=== PATIENT | male | born 1970 | race Caucasian/White ===

== ENCOUNTER 2018-11-27 18:31 | Observation (INO) | payer SELFPAY ==
[2018-11-27 18:32] VITALS: BP 124/82; PULSE 98; RESP 18; TEMP 36.6; O2SAT 98; BMI 24.7
--- NOTE | 2018-11-27 18:46 | EKG12_ITS ---
Test Reason : CP Blood Pressure : / mmHG Vent. Rate : 143 BPM Atrial Rate : 156 BPM P-R Int : 000 ms QRS Dur : 080 ms QT Int : 256 ms P-R-T Axes : 000 074 054 degrees QTc Int : 395 ms Atrial fibrillation with rapid ventricular response Abnormal ECG Confirmed by ROLY CASANOVA, ADAM ([id number]), food expeditor GISELA LEE ([id number] on 12/02/2018 10:10:32 AM Referred By: David Gil Confirmed By:ADAM DUNHAM MD
[2018-11-27] MEDS: dilTIAZem 25 MG/5 ML Vial 20 MG IV BOLUS (18:50)
--- NOTE | 2018-11-27 18:50 | RAD_ITS ---
HISTORY: CHEST PAIN EXAM: XR Chest 1 View: COMPARISON: None FINDINGS: # of images incl. paperwork: 2 LINES/DEVICES: None. LUNGS: Radiographically clear. No consolidation, edema or effusion. No pneumothorax. MEDIASTINUM AND CARDIOVASCULAR STRUCTURES: Cardiac silhouette not enlarged. Central airways and mediastinal contour are unremarkable. BONES AND SOFT TISSUES: Unremarkable. RAD/Chest 1 View (Portable) IMPRESSION: No radiographic evidence of acute cardiopulmonary disease. at 1917 Reported and signed by: Dhiraj Cooper MD Electronically Signed: Dhiraj Cooper, at 19:16 EST Tel , Service support ,
[2018-11-27] MEDS: 0.9% Normal Saline 1,000 ML 1000 ML IV (18:53)
[2018-11-27] MEDS: Aspirin 81 MG TAB.CHEW 324 MG PO (18:55)
[2018-11-27 18:56] VITALS: BP 116/87; PULSE 111; PULSE 112; RESP 14; RESP 17; TEMP 36.6; O2SAT 96; O2SAT 97; O2SAT 98
[2018-11-27 19:09] LABS: Absolute Neutrophil Count 6.6 X10^3/uL (2.0-7.7); Basophil# 0.04 X10^3/uL; Basophil% 0.4 % (0-1); Eosinophil# 0.19 X10^3/uL; Eosinophils% 1.9 % (0-5); Hematocrit 49.2 % (40-54); Hemoglobin 16.4 g/dl (13.0-16.5); Lymphocyte % 23.5 % (19-41); Mean Corp Hgb Conc 33.3 g/gl (32-36); Mean Corpuscular Hgb 30.4 pg (27.0-32.0); Mean Corpuscular Volume 91.3 fL (80-94); Mean Platelet Vol. 10.1 fl (6.2-12.0); Monocyte# 0.64 X10^3/uL; Monocyte% 6.5 % (0-10); Neutrophil # 6.56 X10^3/uL (2.7-7.7); Neutrophil % 67.1 % (47-70); Platelet Count 278 K/mm3 (150-450); RBC Distribution Width CV 12.5 % (11.6-14.6); RBC Distribution Width SD 41.6 fl (35.1-43.9); Red Blood Count 5.39 M/mm3 (4.6-6.2); White Blood Count 9.8 K/mm3 (4.4-11.0)
[2018-11-27 19:11] LABS: POSITIVE COUNT NO; POSITIVE DIFFERENTIAL NO; POSITIVE MORPHOLOGY NO
[2018-11-27 19:19] LABS: Anion Gap 9 (5-15); BUN 18 mg/dL (7-18); BUN/Creat Ratio 13.7 RATIO (10-20); Calcium,Total 8.9 mg/dL (8.5-10.1); Chloride 106 mmol/L (98-107); Creatinine, Serum 1.31 mg/dL (0.70-1.30); EST Glomerular Filtration Rate 62 mL/min (>60); Est Glom Filt Rate - Afr Amer 76 mL/min (>60); Estimated Creatinine Clearance 77.34 ml/min; Glucose 147 mg/dL (74-106); Magnesium 2.2 mg/dL (1.6-2.6); Potassium 4.5 mmol/L (3.5-5.1); Sodium Level 140 mmol/L (136-145); Thyroid Stim Hormone (TSH) 4.12 uIU/mL (0.358-3.74)
[2018-11-27] MEDS: dilTIAZem 25 MG/5 ML Vial IV BOLUS (19:45)
--- NOTE | 2018-11-27 19:48 | ED.VISSUMM ---
- ER Visit Summary Date of Service: 11/27/18 Chief Complaint: Palpitations History of Present Illness: The patient is a 48 M with no primary care physician or medical history. Reports 4:00 this afternoon he began feeling of his heart was racing. Reports that he is not having any chest pain with this. Is made and short of breath and lightheaded. This gets worse when he stands. He has not passed out. He is never had anything like this before. Review of systems otherwise negative. Physical Examination: Vitals: 97.8, 124/82, 162, 18, 90% on room air which is not hypoxic. General: Well-nourished and well-developed. Head: Normocephalic atraumatic. Neck: Supple, no lymphadenopathy. No JVD. Nontender. Cardiovascular: Tachycardic irregularly irregular rhythm. No murmurs. Respiratory: No respiratory distress. Clear to auscultation bilaterally. Abdominal: Soft, nontender, nondistended, normal bowel sounds. No guarding, rebound, or peritoneal signs. Back: Nontender. Extremities: Nontender, no edema. Skin: Normal color, no rash. Neurologic: Alert and oriented ?3. Cranial nerves II through XII are intact. Normal strength and sensation. Psych: Normal affect. Test Results: EKG is A. fib 143 with no ischemic changes. Troponin is negative. CBC is normal. Chem-7 shows a creatinine 1.31 glucose 147. TSH is 4.12. Magnesium is 2.3. Chest x-ray is normal. Emergency Department Course and Treatment: Patient had an IV placed. He was given a liter normal saline. He was given Cardizem IV. His heart rate decreased into the 90s with this. He had then went back up to the 110-120 range he was given 25 mg of Cardizem IV. He was given aspirin p.o. Treatment Plan: Patient will be discussed with Dr. Pina and Dr. Gil. He has refused cardioversion in the emergency department. He will be admitted for further evaluation and treatment. Disposition: Admitted in improved condition. Impression: 1. Atrial fibrillation with RVR. 2. Renal insufficiency. 3. Critical care time 30 minutes. This note was generated with [employer] software. It may contain incorrect words, spelling, and punctuation that were not noted in review of the chart prior to signing ED Disposition - Plan for ED Patient: Referrals: Care Physician,No Primary [Primary Care Provider] -
--- NOTE | 2018-11-27 19:59 | ED.RN ---
sPOKE WITH DOCTOR FABIENNE, NOT SEPTIC PATIENT, PATIENT IN AFIB.
--- NOTE | 2018-11-27 20:12 | ED.RN ---
Pt refused Lovenox injection, educated on Afib and importance of medication. Explained why has to be given SubQ and still refused medication. Notified Dr. Reyez.
[2018-11-27 20:22] VITALS: BP 105/80; PULSE 81; RESP 20; O2SAT 99
[2018-11-27] MEDS: Enoxaparin 80 MG/0.8 ML Syringe SC (20:24)
[2018-11-27 20:57] VITALS: BMI 23.0
--- NOTE | 2018-11-27 20:58 | PCM.HP.STD ---
Problem List (1) Atrial fibrillation with RVR Status: Acute (2) Elevated TSH Status: Acute (3) Alcohol dependence Status: Acute (4) DAMION (acute kidney injury) Status: Acute History of Present Illness Date of Admission: 11/27/18 Chief Complaint: racing heart The patient is a 48 year old M who is previously healthy who presents with a feeling of his heart racing. His symptoms started on the same day of admission. Associated with his symptoms is shortness of breath with mild exertion; and lightheadedness with standing. Because his symptoms persisted he came to emergency department. At emergency department he was found to be in A. fib with RVR with a ventricular rate as high as 160. He received Cardizem IV bolus that brought his heart rate temporarily to 90 only for his heart rate to increase again to 110. After another Cardizem bolus his heart rate remained below 100. He was given therapeutic dose of Lovenox at the ED. Because his symptoms started on the same day of presentation emergency department doctor wanted to cardiovert him. However patient refused cardioversion. Emergency department doctor discussed the case with cardiology who was in agreement with anticoagulation. Also, at the emergency department patient was noted to have elevated creatinine and elevated TSH. Past Medical History Allergies No Known Allergies Allergy (Verified 11/27/18 18:34) Home Medications: Ambulatory Orders Medication Instructions Recorded NK 11/27/18 Surgical History: tonsillectomy Lives: With Family Smoking Status: Current every day smoker Alcohol: Heavy - *Family History Maternal Family History: Family History (Last Updated 11/27/18 @ 22:04 by David Gil MD) Grandfather Heart problem Review of Systems Constitutional: Denies: Chills, Fever, Weight Change HEENT: Denies: Head Aches, Sinus Congestion, Sinus Drainage Cardiovascular: Reports: Light Headedness, Palpitations. Denies: Chest Pain Respiratory: Reports: Shortness of breath upon exertion. Denies: Cough, Sputum production Gastrointestinal: Denies: Abdominal Pain, Nausea, Vomiting Genitourinary: Denies: Dysuria Musculoskeletal: Denies: Joint Pain, Joint Tenderness Skin: Denies: Rash, Wounds Neurological: Denies: Numbness, Tingling, Focal weakness Psychiatric: Denies: Anxiety, Depression, Homicidal Ideations, Suicidal Ideations Hematologic/ Lymphatic: Denies: Easy Bruising, Easy Bleeding VTE Information - Inpt Only VTE Present on Admission: No VTE Mechan Device Prophylaxis: None VTE Pharm Prophylaxis ordered?: No Reason prophylaxis not ordered:: Treatment Not Indicated - Started on therapeutic Lovenox for A. fib with RVR. Patient Problems: Active and Suspected Problems Atrial fibrillation with RVR (Acute) Elevated TSH (Acute) Alcohol dependence (Acute) DAMION (acute kidney injury) (Acute) - Physical Exam General: Alert, Oriented x3, Cooperative HEENT: Atraumatic, EOMI, Normocephalic Neck: Supple, No JVD, Negative Carotid Bruits Lungs: Clear to auscultation, Normal air movement Cardiovascular: No murmurs, Irregular Rate Abdomen: Bowel Sounds Present, Soft, Non Tender Extremities: No edema, Capillary Refill Less than 3 Seconds Skin: No rashes, No breakdown Musculoskeletal: No Tenderness to Palpation of Joints or Extremities Neurological: Neuro grossly intact Psych/Mental Status: Normal Affect, Appropriate Vital Signs Temp Pulse Resp BP Pulse Ox 97.8 F 81 20 H 105/80 99 11/27/18 18:56 11/27/18 20:22 11/27/18 20:22 11/27/18 20:22 11/27/18 20:22 Oxygen Delivery Method Room Air Weight: 83 kg Body Mass Index (BMI) 24.7 Laboratory Tests Past 24 Hrs 11/27/18 11/27/18 18:50 18:50 WBC 9.8 RBC 5.39 Hgb 16.4 Hct 49.2 MCV 91.3 MCH 30.4 MCHC 33.3 RDW 12.5 RDW Differential 41.6 Plt Count 278 MPV 10.1 Immature Gran % (Auto) 0.600 Neut % (Auto) 67.1 Lymph % (Auto) 23.5 [place] % (Auto) 6.5 Eos % (Auto) 1.9 Baso % (Auto) 0.4 Absolute Neuts (auto) 6.6 Absolute Lymphs (auto) 2.30 Total Counted Not Reportable Sodium 140 Potassium 4.5 Chloride 106 Carbon Dioxide 25.0 Anion Gap 9 BUN 18 Creatinine 1.31 H Estim Creat Clear Calc 77.34 Est GFR (MDRD) Af Amer 76 Est GFR (MDRD) Non-Af 62 BUN/Creatinine Ratio 13.7 Glucose 147 H Calcium 8.9 Magnesium 2.2 Troponin I < 0.015 TSH 4.12 H Assessment/Plan All Active Problems Atrial fibrillation with RVR (Acute) Elevated TSH (Acute) Alcohol dependence (Acute) DAMION (acute kidney injury) (Acute) The patient is a 48 year old M who is previously healthy who presents with a feeling of his heart racing and found to be in A. fib with RVR; and also with elevated creatinine and elevated TSH. A. fib with RVR Admitted to PCU on telemetry Obtain echo Received therapeutic dose of Lovenox at emergency department. Lovenox 1 mg per kilogram subcutaneous every 12 hours continued Rate currently controlled with Cardizem bolus X 2 that patient received at emergency department. Ventricular rate currently controlled however patient's remains in A. fib. If patient flips back to A. fib with RVR would consider rate control medication again. Potassium and magnesium levels are unremarkable Chest x-ray independently reviewed shows no acute cardio pulmonary process but with flattened diaphragms and hyperinflation that may be due to patient's history of smoking. Consult [facility]. Subclinical hypothyroidism Patient noted to have elevated TSH but with normal free T4 and free T3 Outpatient follow-up recommended. DAMION At admission his creatinine was 1.31. No previous creatinine on file to compare with. Different diagnosis include DAMION; or increased muscle mass. Gentle IV hydration Trend BMP. Avoid nephrotoxics Tobacco abuse Counseled Nicotine patch prescribed Alcohol dependence Patient drinks 6 beers 2-3 times per week. Patient thinks that he will not withdraw. Will place patient on CIWA protocol with thiamine, folic acid and Ativan as needed. DVT prophylaxis Not indicated since patient has been initiated on therapeutic Lovenox for new onset A. fib. Code Visit OBSV E&M: 94454 Initial observation care L3
[2018-11-27 21:05] VITALS: PULSE 90
[2018-11-27 21:06] VITALS: BP 98/78; PULSE 80; RESP 16; TEMP 36.8; O2SAT 98
--- NOTE | 2018-11-27 21:06 | ECHOD_ITS ---
Reason For Study: A. fib/flutter Procedure This was a 2D Doppler, Color Flow transthoracic echocardiogram. Exam performed portable in patient room. Left Ventricle Normal LV size. Left ventricular systolic function is normal. The estimated ejection fraction is 50 %. Unable to assess diastolic dysfunction due to arrhythmia. No regional wall motion abnormalities noted. Right Ventricle Normal RV size. Normal systolic function. Atria Normal left atrium. Normal right atrium. Mitral Valve Mild mitral valve prolapse. Trivial eccentric mitral valve insufficiency. Tricuspid Valve Normal tricuspid valve. Mild tricuspid valve insufficiency. Aortic Valve Normal aortic valve. Trisinus/trileaflet aortic valve. Pulmonic Valve Normal pulmonic valve. Great Vessels Normal aortic root. The pulmonary artery is normal size. Normal inferior vena cava. Pericardium/Pleural No pericardial effusion. MMode/2D Measurements & Calculations LVIDd: 4.4 cm IVSd: 1.1 cm Ao root diam: 2.9 cm LVIDs: 3.2 cm LVPWd: 0.94 cm RVDd: 2.9 cm FS: 27.0 % LAV(MOD-bp): 34.0 ml LA A4 area: 14.2 cm2 LA dimension(2D): 3.1 cm LAV(MOD-bp) Indexed: 17.1 ml/m2 LAV(MOD-sp2): 36.1 ml LAV(MOD-sp4): 29.5 ml RA A4 area: 15.8 cm2 Doppler Measurements & Calculations MV E max osmany: 87.4 cm/sec Ao V2 max: 108.6 cm/sec LV V1 max: 93.5 cm/sec Ao max P.8 mmHg LV V1 max P.5 mmHg PA V2 max: 75.0 cm/sec TR max osmany: 201.7 cm/sec TR max P.3 mmHg Interpretation Summary Normal LV size. Left ventricular systolic function is normal. The estimated ejection fraction is 50 %. Unable to assess diastolic dysfunction due to arrhythmia. Mild mitral valve prolapse. Mild tricuspid valve insufficiency. Ordering Physician: David Gil Referring Physician: David Gil Performed By: Sonia Trejo RDCS
--- NOTE | 2018-11-27 21:20 | ED.RN ---
After further education consented to receiving Lovenox.
[2018-11-27 21:42] LABS: Free T3 2.8 pg/mL (2.18-3.98)
[2018-11-27] MEDS: 0.9% Normal Saline 1,000 ML 100 ML IV (22:14)
[2018-11-27 23:14] VITALS: PULSE 81
[2018-11-28 03:00] VITALS: BP 126/98; PULSE 84; PULSE 97; RESP 16; TEMP 36.9; O2SAT 97
[2018-11-28 05:55] LABS: Anion Gap 9 (5-15); BUN 15 mg/dL (7-18); BUN/Creat Ratio 15.7 RATIO (10-20); Calcium,Total 8.2 mg/dL (8.5-10.1); Chloride 109 mmol/L (98-107); Creatinine, Serum 0.95 mg/dL (0.70-1.30); EST Glomerular Filtration Rate 90 mL/min (>60); Est Glom Filt Rate - Afr Amer 109 mL/min (>60); Estimated Creatinine Clearance 105.68 ml/min; Glucose 93 mg/dL (74-106); Potassium 4.1 mmol/L (3.5-5.1); Sodium Level 142 mmol/L (136-145)
--- NOTE | 2018-11-28 06:39 | PCM.CONS.C ---
Reason for Consult Date of Consultation: 11/28/18 Reason for Consultation: Rapid heart rate History of Present Illness: The patient is a 48 year old M was previously healthy who presents with a feeling of his heart racing. His symptoms started on the same day of admission. Associated with his symptoms is shortness of breath with mild exertion; and lightheadedness with standing. Because his symptoms persisted he came to emergency department. At emergency department he was found to be in A. fib with RVR with a ventricular rate as high as 160. He received Cardizem IV bolus that brought his heart rate temporarily to 90 only for his heart rate to increase again to 110. After another Cardizem bolus his heart rate remained below 100. He was given therapeutic dose of Lovenox at the ED. he specifically denies any chest pain or paroxysmal nocturnal dyspnea or pedal edema patient has not consumed any unusual beverage and he has occasionally felt some palpitations but this has been long-standing. He was admitted to the telemetry care unit and appears to be doing better at this time. Past Medical History Allergies/Adverse Reactions: Allergies No Known Allergies Allergy (Verified 11/27/18 18:34) Home Medications: Ambulatory Orders Medication Instructions Recorded NK 11/27/18 Surgical History: tonsillectomy - *Family History Maternal Family History: Family History (Last Updated 11/27/18 @ 22:04 by David Gil MD) Grandfather Heart problem Lives: With Family Smoking Status: Current every day smoker Alcohol: Heavy Drugs: None Review of Systems - Review of Systems General: Denies: Fever, Night Sweats, Fatigue HEENT: Denies: Vision Change Cardiovascular: Reports: Shortness of Breath, Palpitations. Denies: Chest Discomfort, Orthopnea, PND, Peripheral Edema, Lightheadedness, Dizziness, Near Syncope, Syncope Respiratory: Denies: Cough, Sputum Production, Hemoptysis Gastrointestinal: Denies: Indigestion, Hematemesis, Hematochezia, Melena Genitourinary: Denies: Dysuria, Hematuria Muscoloskeletal: Denies: Myalgias Skin: Denies: Rash Neurological: Denies: Dizziness Psychiatric: Denies: Anxiety Endocrine: Denies: Unexplained Weight Loss Hematologic/ Lymphatic: Denies: Anemia Subjectve: Pleasant gentleman in no apparent distress. Appears to be mildly anxious. Objective: Vital Signs Temp Pulse Resp BP Pulse Ox 98.4 F 97 16 126/98 H 97 11/28/18 03:00 11/28/18 03:00 11/28/18 03:00 11/28/18 03:00 11/28/18 03:00 Oxygen Delivery Method Room Air Weight: 169 lb 8.568 oz Body Mass Index (BMI) 23.0 Intake and Output for Last 24 Hours 11/26/18 11/27/18 11/28/18 23:59 23:59 23:59 Intake Total 705 / 705 Balance 705 / 705 General: Awake, Alert, Oriented x 3 HEENT: PERRL, EOMI, Sclera Non Icteric Neck: Supple, Good ROM, No Lymph Node Enlargement Lungs: Clear to auscultation Cardiovascular: Irregular Rhythm, Normal S1, Normal S2, No Murmurs, No Rubs, No Gallops Vascular: No Carotid Bruits, Normal Femoral Pulses, Normal Radial Pulses, Normal Dorsalis Pedal Pulse, Normal Posterior Tibial Pulses Abdomen: Bowel Sounds Present, Soft, Non Tender, No HSM, No Organomegaly Extremities: No Cyanosis, No Clubbing, No edema Musculoskeletal: No Erythema Skin: No Rashes Lymphatic: No Lymph Node Enlargement Neurological: No Focal Motor or Sensory Deficit Psych/Mental Status: Appropriate 11/27/18 18:50: WBC 9.8, RBC 5.39, Hgb 16.4, Hct 49.2, MCV 91.3, MCH 30.4, MCHC 33.3, RDW 12.5, RDW Differential 41.6, Plt Count 278, MPV 10.1, Immature Gran % (Auto) 0.600, Neut % (Auto) 67.1, Lymph % (Auto) 23.5, [place] % (Auto) 6.5, Eos % (Auto) 1.9, Baso % (Auto) 0.4, Absolute Neuts (auto) 6.6, Total Counted Not Reportable 11/27/18 18:50: Sodium 140, Potassium 4.5, Chloride 106, Carbon Dioxide 25.0, Anion Gap 9, BUN 18, Creatinine 1.31 H, Est GFR (MDRD) Af Amer 76, Est GFR (MDRD) Non-Af 62, BUN/Creatinine Ratio 13.7, Glucose 147 H, Calcium 8.9, Magnesium 2.2, Troponin I < 0.015 11/28/18 05:25: Sodium 142, Potassium 4.1, Chloride 109 H, Carbon Dioxide 24.0, Anion Gap 9, BUN 15, Creatinine 0.95, Est GFR (MDRD) Af Amer 109, Est GFR (MDRD) Non-Af 90, BUN/Creatinine Ratio 15.7, Glucose 93, Calcium 8.2 L Rhythm: EKG: Atrial fibrillation with rapid ventricular response rate of 140 bpm Assessment/Plan 1. New onset atrial fibrillation The patient presents with new onset atrial fibrillation with a rapid ventricular response rate. The etiology is not entirely clear but may be related to alcohol use. He does have a chads score of 0 and my recommendation at this time would be to rate control him with beta-jeremie Consider short-term anticoagulation Obtain an echocardiogram If his rate is well controlled we will discharge him for outpatient follow-up in the hopes that he may spontaneously convert to sinus rhythm. If he has not within 2-3 weeks on anticoagulation he will be DC cardioverted. Alcohol use has been discouraged Thank you for allowing me to participate in the care of your patient. Please don't hesitate to call if any issues arise
--- NOTE | 2018-11-28 06:43 | CON.PCM_ITS ---
Reason for Consult Date of Consultation: 11/28/18 Reason for Consultation: Rapid heart rate History of Present Illness: The patient is a 48 year old M was previously healthy who presents with a feeling of his heart racing. His symptoms started on the same day of admission. Associated with his symptoms is shortness of breath with mild exertion; and lightheadedness with standing. Because his symptoms persisted he came to emergency department. At emergency department he was found to be in A. fib with RVR with a ventricular rate as high as 160. He received Cardizem IV bolus that brought his heart rate temporarily to 90 only for his heart rate to increase again to 110. After another Cardizem bolus his heart rate remained below 100. He was given therapeutic dose of Lovenox at the ED. he specifically denies any chest pain or paroxysmal nocturnal dyspnea or pedal edema patient has not consumed any unusual beverage and he has occasionally felt some palpitations but this has been long- standing. He was admitted to the telemetry care unit and appears to be doing better at this time. Past Medical History Allergies/Adverse Reactions: Allergies No Known Allergies Allergy (Verified 11/27/18 18:34) Home Medications: Ambulatory Orders Medication Instructions Recorded NK 11/27/18 Surgical History: tonsillectomy - *Family History Maternal Family History: Family History (Last Updated 11/27/18 @ 22:04 by David Gil MD) Grandfather Heart problem Lives: With Family Smoking Status: Current every day smoker Alcohol: Heavy Drugs: None Review of Systems - Review of Systems General: Denies: Fever, Night Sweats, Fatigue HEENT: Denies: Vision Change Cardiovascular: Reports: Shortness of Breath, Palpitations. Denies: Chest Discomfort, Orthopnea, PND, Peripheral Edema, Lightheadedness, Dizziness, Near Syncope, Syncope Respiratory: Denies: Cough, Sputum Production, Hemoptysis Gastrointestinal: Denies: Indigestion, Hematemesis, Hematochezia, Melena Genitourinary: Denies: Dysuria, Hematuria Muscoloskeletal: Denies: Myalgias Skin: Denies: Rash Neurological: Denies: Dizziness Psychiatric: Denies: Anxiety Endocrine: Denies: Unexplained Weight Loss Hematologic/ Lymphatic: Denies: Anemia Subjectve: Pleasant gentleman in no apparent distress. Appears to be mildly anxious. Objective: Vital Signs Temp Pulse Resp BP Pulse Ox 98.4 F 97 16 126/98 H 97 11/28/18 03:00 11/28/18 03:00 11/28/18 03:00 11/28/18 03:00 11/28/18 03:00 Oxygen Delivery Method Room Air Weight: 169 lb 8.568 oz Body Mass Index (BMI) 23.0 Intake and Output for Last 24 Hours 11/26/18 11/27/18 11/28/18 23:59 23:59 23:59 Intake Total 705 / 705 Balance 705 / 705 General: Awake, Alert, Oriented x 3 HEENT: PERRL, EOMI, Sclera Non Icteric Neck: Supple, Good ROM, No Lymph Node Enlargement Lungs: Clear to auscultation Cardiovascular: Irregular Rhythm, Normal S1, Normal S2, No Murmurs, No Rubs, No Gallops Vascular: No Carotid Bruits, Normal Femoral Pulses, Normal Radial Pulses, Normal Dorsalis Pedal Pulse, Normal Posterior Tibial Pulses Abdomen: Bowel Sounds Present, Soft, Non Tender, No HSM, No Organomegaly Extremities: No Cyanosis, No Clubbing, No edema Musculoskeletal: No Erythema Skin: No Rashes Lymphatic: No Lymph Node Enlargement Neurological: No Focal Motor or Sensory Deficit Psych/Mental Status: Appropriate 11/27/18 18:50: WBC 9.8, RBC 5.39, Hgb 16.4, Hct 49.2, MCV 91.3, MCH 30.4, MCHC 33.3, RDW 12.5, RDW Differential 41.6, Plt Count 278, MPV 10.1, Immature Gran % (Auto) 0.600, Neut % (Auto) 67.1, Lymph % (Auto) 23.5, [place] % (Auto) 6.5, Eos % (Auto) 1.9, Baso % (Auto) 0.4, Absolute Neuts (auto) 6.6, Total Counted Not Reportable 11/27/18 18:50: Sodium 140, Potassium 4.5, Chloride 106, Carbon Dioxide 25.0, Anion Gap 9, BUN 18, Creatinine 1.31 H, Est GFR (MDRD) Af Amer 76, Est GFR (MDRD) Non-Af 62, BUN/Creatinine Ratio 13.7, Glucose 147 H, Calcium 8.9, Magnesium 2.2, Troponin I < 0.015 11/28/18 05:25: Sodium 142, Potassium 4.1, Chloride 109 H, Carbon Dioxide 24.0, Anion Gap 9, BUN 15, Creatinine 0.95, Est GFR (MDRD) Af Amer 109, Est GFR (MDRD) Non-Af 90, BUN/Creatinine Ratio 15.7, Glucose 93, Calcium 8.2 L Rhythm: EKG: Atrial fibrillation with rapid ventricular response rate of 140 bpm Assessment/Plan 1. New onset atrial fibrillation * The patient presents with new onset atrial fibrillation with a rapid ventricular response rate. The etiology is not entirely clear but may be related to alcohol use. * He does have a chads score of 0 and my recommendation at this time would be to rate control him with beta-jeremie * Consider short-term anticoagulation * Obtain an echocardiogram * If his rate is well controlled we will discharge him for outpatient follow-up in the hopes that he may spontaneously convert to sinus rhythm. If he has not within 2-3 weeks on anticoagulation he will be DC cardioverted. * Alcohol use has been discouraged * * Thank you for allowing me to participate in the care of your patient. Please don't hesitate to call if any issues arise
[2018-11-28 07:37] VITALS: PULSE 87
[2018-11-28 09:15] VITALS: BP 132/85; PULSE 76; RESP 17; TEMP 36.6; O2SAT 97
[2018-11-28] MEDS: Folic Acid 1 MG Tablet PO (09:24)
[2018-11-28] MEDS: Multivitamins,Ther W-Minerals Tablet 1 TABLET PO (09:24)
[2018-11-28] MEDS: Thiamine Hydrochloride 100 MG Tablet PO (09:25)
[2018-11-28 09:28] VITALS: PULSE 76
[2018-11-28] MEDS: Metoprolol Tartrate 50 MG Tablet PO (09:28)
[2018-11-28 11:20] VITALS: PULSE 89
--- NOTE | 2018-11-28 13:36 | CASEMGMT ---
Per Sharon BROWN, pt to be sent home on Xarelto and Sharon is aware of pt self-pay status. This RN CM to room to provide pt with Xarelto 30day free trial offer at this time and to advise pt to discuss townsend/self-pay with Dr. Pina at f/u visit, pt/ voice understanding of all at this time. Pt/ voice no further questions/concerns/needs at this time. SStaten LUIS MIGUEL CM
--- NOTE | 2018-11-28 13:42 | DCINST_ITS ---
- Discharge Diagnoses Current Active Problems: Current Active and Chronic Problems Atrial fibrillation with RVR (Acute) Elevated TSH (Acute) Alcohol dependence (Acute) DAMION (acute kidney injury) (Acute) You will use the following diet at home:: Cardiac, Other - No alcohol Your food should be the consistency of: Regular Your liquids should be the consistency of: Regular/Thin Discharge Activity: Return to Normal Activity, - - No smoking Allergies/Adverse Reactions: Allergies No Known Allergies Allergy (Verified 11/27/18 18:34) Medications to take at Discharge Metoprolol Tartrate [Lopressor (beta jeremie)] 50 mg PO BID #60 tab 11/28/18 Rivaroxaban [Xarelto] 20 mg PO DAILY@1700 #30 tab 11/28/18 The following prescriptions were given: Metoprolol Tartrate [Lopressor (beta jeremie)] 50 mg PO BID #60 tab Rivaroxaban [Xarelto] 20 mg PO DAILY@1700 #30 tab Primary Care Physician: Care Physician,No Primary [Primary Care Provider] - Please follow up with your Primary Care Physician in: 1-2 weeks Test Results: Test results from this visit will be discussed in further detail at your follow- up appointment, if applicable. Please Follow Up With: Ayaz Pina MD When: 1 week Proposed Discharge Date: 11/28/18
--- NOTE | 2018-11-28 14:21 | PCM.DC.SUM ---
<Rahul Li - Last Filed: 11/28/18 14:21> Discharge Date and Diagnosis Date of Admission: 11/27/18 Date of Discharge: 11/28/18 - Primary Discharge Diagnosis Active and Suspected Problems Atrial fibrillation with RVR (Acute) Alcohol dependence (Acute) DAMION (acute kidney injury) (Acute) Hospital Course and Treatment Imaging Results: RAD/Chest 1 View (Portable) IMPRESSION: No radiographic evidence of acute cardiopulmonary disease. Echo: Interpretation Summary Normal LV size. Left ventricular systolic function is normal. The estimated ejection fraction is 50 %. Unable to assess diastolic dysfunction due to arrhythmia. Mild mitral valve prolapse. Mild tricuspid valve insufficiency. Consults: Yovani - cardiology Operations: None Procedures: 2-D Echocardiogram Summary of Care Provided: Hospital Course: The patient is a 48 year old M with past medical history of nicotine abuse, alcohol abuse, who presented to the emergency room with chief complaint of palpitations. He was found to be in A. fib with RVR with a rate as high as 160. He was given IV Cardizem and subcu Lovenox. Patient refused to have a cardioversion. He was admitted to the PCU and placed on telemetry. Cardiology was consulted. He was placed on a sblq-cofdbia-Okzoricrp 50 twice daily and Xarelto. His rate remained controlled overnight, however he did remain in atrial fibrillation. He had no further symptoms the following morning. An echocardiogram was obtained which was unremarkable. He was discharged home on the metoprolol and Xarelto. He will follow-up with cardiology in 1 week. I also strongly urged him to find a PCP in follow-up in 2 weeks. We also strongly encouraged him to discontinue using alcohol, tobacco, and any other illicit substances. This patient was seen by Rahul Li PA-C under the supervision of Doctor Villa. [] - Physical Exam General: Alert, Oriented x3, Cooperative HEENT: Atraumatic, PERRLA, EOMI, Normocephalic Neck: Supple, No JVD, Negative Carotid Bruits Lungs: Clear to auscultation, Normal air movement Cardiovascular: Regular rate, No murmurs Abdomen: Bowel Sounds Present, Soft, Non Tender Extremities: No edema, Capillary Refill Less than 3 Seconds Skin: No rashes, No breakdown Musculoskeletal: No Tenderness to Palpation of Joints or Extremities Neurological: Cranial nerves II-XII grossly intact Psych/Mental Status: Normal Affect, Appropriate, Alert and oriented to time, place, person, mood and affect Vital Signs Temp Pulse Resp BP Pulse Ox 97.9 F 89 17 132/85 H 97 11/28/18 09:15 11/28/18 11:20 11/28/18 09:15 11/28/18 09:15 11/28/18 09:15 Oxygen Delivery Method Room Air Weight: 169 lb 8.568 oz Body Mass Index (BMI) 23.0 Intake and Output for Last 24 Hours 11/26/18 11/27/18 11/28/18 23:59 23:59 23:59 Intake Total 1450 / 1450 Balance 1450 / 1450 Laboratory Tests Past 24 Hrs 11/27/18 11/27/18 11/27/18 18:50 18:50 18:50 WBC 9.8 RBC 5.39 Hgb 16.4 Hct 49.2 MCV 91.3 MCH 30.4 MCHC 33.3 RDW 12.5 RDW Differential 41.6 Plt Count 278 MPV 10.1 Immature Gran % (Auto) 0.600 Neut % (Auto) 67.1 Lymph % (Auto) 23.5 [place] % (Auto) 6.5 Eos % (Auto) 1.9 Baso % (Auto) 0.4 Absolute Neuts (auto) 6.6 Absolute Lymphs (auto) 2.30 Total Counted Not Reportable Sodium 140 Potassium 4.5 Chloride 106 Carbon Dioxide 25.0 Anion Gap 9 BUN 18 Creatinine 1.31 H Estim Creat Clear Calc 77.34 Est GFR (MDRD) Af Amer 76 Est GFR (MDRD) Non-Af 62 BUN/Creatinine Ratio 13.7 Glucose 147 H Calcium 8.9 Magnesium 2.2 Troponin I < 0.015 TSH 4.12 H Free T4 1.10 Free T3 pg/dL 2.8 Ethyl Alcohol 11/27/18 11/28/18 18:50 05:25 WBC RBC Hgb Hct MCV MCH MCHC RDW RDW Differential Plt Count MPV Immature Gran % (Auto) Neut % (Auto) Lymph % (Auto) [place] % (Auto) Eos % (Auto) Baso % (Auto) Absolute Neuts (auto) Absolute Lymphs (auto) Total Counted Sodium 142 Potassium 4.1 Chloride 109 H Carbon Dioxide 24.0 Anion Gap 9 BUN 15 Creatinine 0.95 Estim Creat Clear Calc 105.68 Est GFR (MDRD) Af Amer 109 Est GFR (MDRD) Non-Af 90 BUN/Creatinine Ratio 15.7 Glucose 93 Calcium 8.2 L Magnesium Troponin I TSH Free T4 Free T3 pg/dL Ethyl Alcohol 5.0 Discharge Diet: Low fat/ Low Cholesterol, 2000 mg Sodium Diet Discharge Activity: Return to Normal Activity, - - No smoking Home Medications: Medications to take at Discharge Metoprolol Tartrate [Lopressor (beta jeremie)] 50 mg PO BID #60 tab 11/28/18 Rivaroxaban [Xarelto] 20 mg PO DAILY@1700 #30 tab 11/28/18 Following Prescrptions Were Given to Patient: Metoprolol Tartrate [Lopressor (beta jeremie)] 50 mg PO BID #60 tab Rivaroxaban [Xarelto] 20 mg PO DAILY@1700 #30 tab Primary Care Physician: Care Physician,No Primary [Primary Care Provider] - Please follow up with your Primary Care Physician in: 1-2 weeks Please Follow Up With: Ayaz Pina MD When: 1 week Disposition: Home Minutes spent on discharge:: 35 Patient Condition:: Stable Medical Necessity - Tobacco Use Smoking Status: Current every day smoker Meaningful Use Info Meaningful Use Diagnoses (Choose all that apply): None applicable <Carmine Villa - Last Filed: 11/28/18 16:23> Hospital Course and Treatment Operations: None Procedures: 2-D Echocardiogram Summary of Care Provided: Patient seen and examined independently. Data reviewed. I agree with the above note by the physician licensed physical therapy assistant. The patient is a 48 year old M presents with atrial fibrillation with RVR. Received IV Cardizem and anticoagulated with Lovenox. He had a chads vas score of 0. Patient was put on Lopressor as well as Xarelto for the time being. He will follow-up with cardiology in 1 week and reassess. Patient continues to be in A. fib but currently rate controlled. Patient advised of the potential risk of atrial for ablation being due to his alcohol consumption. Patient states that he drinks 2-3 times per week where he drinks around 6 beers at a time. Advised moderation or complete cessation of alcohol. Also advised cessation of tobacco as well. [] - Physical Exam General: Alert, Cooperative HEENT: Atraumatic, Normocephalic Lungs: Clear to auscultation, Normal air movement, No rhonchi, No wheeze Cardiovascular: No murmurs, Irregular Rate Abdomen: Bowel Sounds Present, Soft, Non Tender, Non-Distended Vital Signs Temp Pulse Resp BP Pulse Ox 36.6 C 92 18 126/76 H 98 11/28/18 14:25 11/28/18 14:25 11/28/18 14:25 11/28/18 14:25 11/28/18 14:25 Oxygen Delivery Method Room Air Weight: 76.9 kg Body Mass Index (BMI) 23.0 Intake and Output for Last 24 Hours 11/26/18 11/27/18 11/28/18 23:59 23:59 23:59 Intake Total 1450 / 1450 Balance 1450 / 1450 Laboratory Tests Past 24 Hrs 11/27/18 11/27/18 11/27/18 18:50 18:50 18:50 WBC 9.8 RBC 5.39 Hgb 16.4 Hct 49.2 MCV 91.3 MCH 30.4 MCHC 33.3 RDW 12.5 RDW Differential 41.6 Plt Count 278 MPV 10.1 Immature Gran % (Auto) 0.600 Neut % (Auto) 67.1 Lymph % (Auto) 23.5 [place] % (Auto) 6.5 Eos % (Auto) 1.9 Baso % (Auto) 0.4 Absolute Neuts (auto) 6.6 Absolute Lymphs (auto) 2.30 Total Counted Not Reportable Sodium 140 Potassium 4.5 Chloride 106 Carbon Dioxide 25.0 Anion Gap 9 BUN 18 Creatinine 1.31 H Estim Creat Clear Calc 77.34 Est GFR (MDRD) Af Amer 76 Est GFR (MDRD) Non-Af 62 BUN/Creatinine Ratio 13.7 Glucose 147 H Calcium 8.9 Magnesium 2.2 Troponin I < 0.015 TSH 4.12 H Free T4 1.10 Free T3 pg/dL 2.8 Ethyl Alcohol 11/27/18 11/28/18 18:50 05:25 WBC RBC Hgb Hct MCV MCH MCHC RDW RDW Differential Plt Count MPV Immature Gran % (Auto) Neut % (Auto) Lymph % (Auto) [place] % (Auto) Eos % (Auto) Baso % (Auto) Absolute Neuts (auto) Absolute Lymphs (auto) Total Counted Sodium 142 Potassium 4.1 Chloride 109 H Carbon Dioxide 24.0 Anion Gap 9 BUN 15 Creatinine 0.95 Estim Creat Clear Calc 105.68 Est GFR (MDRD) Af Amer 109 Est GFR (MDRD) Non-Af 90 BUN/Creatinine Ratio 15.7 Glucose 93 Calcium 8.2 L Magnesium Troponin I TSH Free T4 Free T3 pg/dL Ethyl Alcohol 5.0 Discharge Diet: Low fat/ Low Cholesterol, 2000 mg Sodium Diet Discharge Activity: Return to Normal Activity, - Disposition: Home Patient Condition:: Stable Meaningful Use Info Meaningful Use Diagnoses (Choose all that apply): None applicable Code Visit OBSV E&M: 64510 Observation care discharge
[2018-11-28 14:25] VITALS: BP 126/76; PULSE 92; RESP 18; TEMP 36.6; O2SAT 98
== END 2018-11-28 14:28 | disposition home or self-care (01) ==
LOC: ED 19:18 → PCU 20:26
PROVIDERS: Admitting Provider Hospitalist; Emergency Provider Emergency Medicine; Referring Provider Hospitalist
DX: I48.91 Unspecified atrial fibrillation (principal); F10.20 Alcohol dependence, uncomplicated; N17.9 Acute kidney failure, unspecified; R42 Dizziness and giddiness; F17.200 Nicotine dependence, unspecified, uncomplicated; E02 Subclinical iodine-deficiency hypothyroidism; I08.1 Rheumatic disorders of both mitral and tricuspid valves
CPT/HCPCS: 36415; 71045; 80048; 80320; 83735; 84439; 84443; 84481; 84484; 85025; 93005; 93306; 96361; 96372; 96374; 96375; 99218; 99285; 99406; J7030; A4216; G0378; G0480

== ENCOUNTER 2018-12-20 10:30 | Day surgery (SDC) | payer SELFPAY ==
[2018-12-10 09:43] VITALS: BMI 23.0
[2018-12-19 08:07] VITALS: BMI 23.3
--- NOTE | 2018-12-20 11:08 | PCM.OP.PRO ---
Procedure Report Date of Procedure: 12/20/18 DC cardioversion 48-year-old male with a history of atrial fibrillation has been on anticoagulation for at least 3 weeks. Patient was brought into the noninvasive lab in the postabsorptive state after informed consent was obtained the patient was seen by Dr. Singleton of the critical care division. He was administered 70 mg of intravenous propofol after anterior-posterior pads were applied. 200 J of synchronized DC cardioversion energy were applied with prompt reversal to sinus rhythm. Patient tolerated the procedure well. Conclusion: Successful DC cardioversion from atrial fibrillation to sinus rhythm. Patient will continue current medical therapy and follow-up in [facility] group offices.
--- NOTE | 2018-12-20 11:19 | PRO.PCM_ITS ---
Procedure Report Date of Procedure: 12/20/18 CONSCIOUS SEDATION REPORT DATE OF SERVICE: December 20, 2018 BRIEF HISTORY OF PRESENT ILLNESS: The patient is a 48-year-old male who presented to [facility] for an elective outpatient cardioversion due to underlying atrial fibrillation. The patient is currently anticoagulated on Xarelto. He has never undergone a previous cardioversion. His last known ejection fraction was approximately 50%. The patient denies any previous anesthetic complications. He is a current everyday smoker, but denies ever having been diagnosed with COPD, asthma or obstructive sleep apnea previously. PHYSICAL EXAMINATION: VITAL SIGNS: Reviewed and were acceptable. GENERAL: The patient is a male, in no apparent distress, speaking in full sentences. HEENT: Normocephalic, atraumatic. Mucous membranes are moist and pink. Good mouth opening noted. Trachea is midline. MPII. CHEST: S1, S2 irregularly irregular. No murmurs, rubs or gallops were noted. LUNGS: Clear to auscultation bilaterally without appreciable wheezes, rales or rhonchi. ABDOMEN: Soft, nontender, nondistended. Positive bowel sounds. EXTREMITIES: There is no clubbing, cyanosis or edema. ASA Class: II DESCRIPTION OF PROCEDURE: After confirmation of informed consent, the patient's anesthesia plan was reviewed in detail. Propofol was chosen. Risks and benefits were reviewed and the patient agreed to proceed. At 1103, the patient was given his first bolus of propofol. In total, the patient required 70 mg of propofol to achieve an appropriate level of sedation. Following this, the patient was given a 200 joule synchronized cardioversion by Dr. Pina at the bedside. This was successful in achieving normal sinus rhythm. The patient was monitored until 1112, at which time he reached his baseline mental status and function. The patient tolerated the procedure well. COMPLICATIONS: None ESTIMATED BLOOD LOSS: None RECOMMENDATIONS: Okay to recover in usual fashion. Code Visit [id number]: Other Procedure See Report - [id number]
== END 2018-12-20 12:05 | disposition home or self-care (01) ==
LOC: CLSP 10:31
PROVIDERS: Referring Provider Internal Medicine Cardiovascular Disease; Visit Provider Internal Medicine Cardiovascular Disease
DX: I48.91 Unspecified atrial fibrillation (principal); F17.210 Nicotine dependence, cigarettes, uncomplicated; Z79.02 Long term (current) use of antithrombotics/antiplatelets; Z79.899 Other long term (current) drug therapy
CPT/HCPCS: 92960; 93005; J7040

== ENCOUNTER 2021-07-06 12:35 | Emergency (ER) | payer OTHER, SELFPAY ==
[2021-07-06 12:36] VITALS: BP 134/101; PULSE 86; RESP 15; TEMP 36; O2SAT 100; BMI 22.1
--- NOTE | 2021-07-06 12:39 | EKG12_ITS ---
Test Reason : CP Blood Pressure : / mmHG Vent. Rate : 110 BPM Atrial Rate : 138 BPM P-R Int : 000 ms QRS Dur : 082 ms QT Int : 290 ms P-R-T Axes : 000 073 065 degrees QTc Int : 392 ms Atrial fibrillation Abnormal ECG Confirmed by ROLY CASANOVA, ADAM ([id number]), story editor KIMBERLY JOYCE ([id number]) on 07/07/2021 10:35:38 AM Referred By: PL Confirmed By:ADAM DUNHAM MD
--- NOTE | 2021-07-06 12:47 | RAD_ITS ---
STUDY: X-RAY CHEST REASON FOR EXAM: Male, 51 years old. Palpitations TECHNIQUE: Single AP portable view of the chest. COMPARISON: Comparison is made with prior study dated 11/27/2018. FINDINGS: Hyperinflation. The lungs are clear. There is no demonstrated pleural abnormality. Normal size heart. Normal mediastinum and dean. Normal visualized pulmonary arteries. Normal visualized aortic arch and descending thoracic aorta. Normal visualized thoracic spine. Normal visualized ribs, clavicles, and shoulders. There is no demonstrated abnormality of the visualized soft tissue structures of the upper abdomen. RAD/Chest 1 View IMPRESSION: Hyperinflation. Electronically Signed: Ildefonso Schwartz MD at 13:49 EDT , Service support ,
--- NOTE | 2021-07-06 14:12 | EDS_ITS ---
HPI History of Present Illness Chief Complaint: Palpitations Informant: patient Onset/Context/Timing Onset: Today Worsened By: Nothing Relieved By: Nothing Narrative Narrative: 51-year-old male no history of A. fib. Was cardioverted in the past and has come off his medications. He is also not on any type of anticoagulation. Patient states he woke up this morning he was back in A. fib. He denies any chest pain. Prior Similar Symptoms: Yes Recent Illness/Hospitalization: No PE Risk Factors: Negative for Recent Travel/Surgery, Recent Immobilization, Prior DVT or PE, Cancer and OCP + Smoking + >/=35 TAD Risk Factors: Negative for Marfan's Syndrome [facility] Medical History (Updated 07/06/21 @ 16:[address] Edgar Alford MD) DAMION (acute kidney injury) Alcohol dependence Alcoholism in remission Atrial fibrillation with RVR (11/2018) Elevated TSH Nicotine dependence Paroxysmal atrial fibrillation Home Medications aspirin 81 mg tablet,delayed release 81 mg PO DAILY 01/31/19 [History Last Taken Unknown] metoprolol tartrate 25 mg PO BID 30 Days #60 tab 07/06/21 [Rx Last Taken Unknown] Allergy/AdvReac Type Severity Reaction Status Date / Time No Known Allergies Allergy Verified 07/06/21 12:36 Family History Grandfather Heart problem Surgical History History of cardioversion (12/20/18) History of tonsillectomy Social History Smoking Status: Current every day smoker tobacco type: cigarettes alcohol intake: former details: 3 weeks ago caffeine: No ROS ROS ED ROS Narrative Denies recent illness. Review of Systems ROS Unobtainable: Denies due to encephalopathy Constitutional Constitutional ED: Denies fever(s) Eyes Eyes: Denies none or change in vision ENT ENT ED: Denies ear pain or sore throat Cardiovascular Cardiovascular: Reports as per HPI and palpitations; Denies chest pain Respiratory/Chest Respiratory/Chest: Denies cough or dyspnea Gastrointestinal Gastrointestinal: Denies abdominal pain, diarrhea, nausea or vomiting Genitourinary Genitourinary ED: Denies dysuria or hematuria Musculoskeletal Musculoskeletal: Denies myalgias Integumentary Denies rash Neurologic Neurologic: Denies headache(s) Psychiatric Psychiatric: Denies depression Endocrine Endocrinology: Denies polyuria Hematologic/Lymphatic Hematologic/Lymphatic: Denies easy bruising Allergic/Immunologic Allergic/Immunologic ED: Denies urticaria EXAM Physical Exam Narrative Exam Narrative: Middle-age male. Vital signs stable. Initial pulse was 86. Irregular. Consistent with A. fib. HEENT exam normal. Neck nontender. Lungs clear to auscultation. Heart irregularly irregular rhythm. Rate in the 80s and 90s. A. fib. Abdomen soft nontender. Moving all 4 extremities. Nontender no edema. Neurologically awake alert with no focal motor deficits. Const Vital Signs: 07/06/21 12:36 07/06/21 14:24 07/06/21 14:25 Temperature 96.8 F L 98.7 F Temperature Source Temporal Temporal Pulse Rate 86 90 Respiratory Rate 15 10 L Respiratory Effort Normal Non-Labored Blood Pressure 134/101 H 121/98 H Blood Pressure Mean 112 105 Pulse Ox 100 99 Oxygen Delivery Method Room Air Room Air Positive well nourished and well developed; Negative for obese, cachectic, contractures or unkempt General Appearance ED: well developed and NAD; Negative for unkempt, cachectic, contractures or pallor Nutritional Appearance: Negative for cachectic or obese HEENT Reports moist mucous membranes normocephalic and atraumatic Eyes PERRL and EOMs intact bilaterally Neck no lymphadenopathy, supple and no JVD General: Negative for tenderness Chest Wall inspection of chest normal and palpation of chest normal Resp normal respiratory effort and clear to auscultation bilaterally Effort and Inspection: respiratory distress Auscultation: Negative for rales, rhonchi or wheezes Cardio S1 normal heart sound, S2 normal heart sound and no murmurs; Negative for regular rate or regular rhythm GI normal to inspection, nondistended, normoactive bowel sounds, soft to palpation, non-tender, non-distended and no masses Back/Spine no CVA tenderness General Back: Negative for CVA tenderness Extremity normal to inspection General Extremety ED: Negative for edema or tenderness General Extremity: Negative for edema Neuro oriented x3 Sensorium / Orientation: awake, alert, oriented to person, oriented to place and oriented to time Motor Exam: strength 5/5 throughout Psych mental status grossly normal Appearance: Negative for unkempt Skin no rashes or lesions noted and no wounds General Skin Exam: Negative for jaundice or pallor MDM MDM MDM Narrative Medical decision making narrative: 51-year-old male history of A. fib currently off his medications because he has not been in A. fib. Woke up this morning in A. fib again. Repeat exam patient doing well at 440. His heart rates about ninety. He remains in A. fib. We discussed treatment options. He prefers to go home. He will be restarted on his metoprolol and his daily aspirin will consult follow-up with his central services tech and I have Dr. Pina on page to make them aware the patient will need close follow-up. Lab Data Attestation: I reviewed the patient's lab results. Lab results narrative: CBC normal white count 8. Hemoglobin 16. Electrolytes unremarkable gap of 3. Creatinine 1.1. Liver enzymes unremarkable. Troponin normal at 7. Chest x-ray unremarkable. Labs: Laboratory Results - last 24 hr 07/06/21 07/06/21 14:10 14:10 WBC 8.8 RBC 5.33 Hgb 16.1 Hct 50.0 MCV 93.8 MCH 30.2 MCHC 32.2 RDW Std Deviation 41.7 RDW Coeff of Benny 12.1 Plt Count 252 MPV 9.7 Immature Gran % (Auto) 0.500 Neut % (Auto) 69.3 Lymph % (Auto) 20.0 [place] % (Auto) 7.6 Eos % (Auto) 1.7 Baso % (Auto) 0.9 Absolute Neuts (auto) 6.1 Absolute Lymphs (auto) 1.76 Nucleated RBC % 0 Sodium 138 Potassium 4.5 Chloride 106 Carbon Dioxide 29.0 Anion Gap 3 L BUN 11 Creatinine 1.13 Estim Creat Clear Calc 82.88 Est GFR (MDRD) Af Amer 89 Est GFR (MDRD) Non-Af 73 BUN/Creatinine Ratio 9.7 L Glucose 108 H Calcium 8.7 Total Bilirubin 0.50 AST 15 ALT 26 Alkaline Phosphatase 54 Troponin I High Sens 7 Total Protein 7.1 Albumin 3.3 Globulin 3.8 Albumin/Globulin Ratio 0.9 Radiography Chest X-Ray - ED: 1 View, Read by ED Physician, Read by Radiologist, Normal, Heart, Lungs, Mediastinum, Bony Structures and No Acute Disease Diagnostic Testing: Radiology Impression Chest X-Ray 07/06/21 12:47 IMPRESSION: Hyperinflation. Electronically Signed: Ildefonso Schwartz MD at 13:49 EDT , Service support , Portable chest x-ray 1 view interpreted by myself and radiologist shows no acute abnormality. Normal cardiac silhouette mediastinum. No pulmonary edema. Rhythm Strip Rhythm Strip: A-fib Rate: 110 Ectopy: None EKG Initial EKG: Attestation: I personally reviewed and interpreted this EKG as follows: Interpretation: No Acute Injury Pattern and Atrial Fibrillation Comments: Atrial fibrillation rate of 110. No signs of [place] or ischemia. Prior EKG tracings: not available for review Discharge Plan Triage Chief Complaint: Palpitations ED Provider: Edgar Alford Dx/Rx/DC Orders Clinical Impression: Paroxysmal atrial fibrillation Instructions: ED AFIB Prescriptions: New metoprolol tartrate 25 mg tablet 25 mg PO BID 30 Days Qty: 60 RF: 0 No Action aspirin [Adult Aspirin Regimen] 81 mg tablet,delayed release (DR/EC) 81 mg PO DAILY RF: 0 Primary Care Provider: Care Physician,No Primary Referrals: Ayaz Pina MD [STAFF PHYSICIAN] - As soon as possible Care Physician,No Primary [Primary Care Provider] - Activity Restrictions/Additional Instructions: Call and follow-up with Dr. Pina's office tomorrow. Restart your metoprolol twice a day. Watch your blood pressure. Restart daily aspirin. Return if feeling worse accelerated heart rate. Otherwise outpatient follow-up. Disposition Disposition: Home, Self Care
[2021-07-06 14:23] LABS: Absolute Lymphocyte Count 1.76 X10^3/uL (0.83-4.51); Absolute Neutrophil Count 6.1 X10^3/uL (2.0-7.7); Basophil# 0.08 X10^3/uL; Basophil% 0.9 % (0-1); Eosinophil# 0.15 X10^3/uL; Eosinophils% 1.7 % (0-5); Hemoglobin 16.1 g/dL (13.0-16.5); Lymphocyte # 1.76 X10^3/ul (0.83-4.51); Mean Corp Hgb Conc 32.2 g/dL (32-36); Mean Corpuscular Hgb 30.2 pg (27.0-32.0); Mean Corpuscular Volume 93.8 fL (80-94); Mean Platelet Vol. 9.7 fl (6.2-12.0); Monocyte# 0.67 X10^3/uL; Monocyte% 7.6 % (0-10); NRBC Flagged by Analyzer 0 % (0-5); Neutrophil # 6.12 X10^3/uL (2.7-7.7); Neutrophil % 69.3 % (47-70); Platelet Count 252 K/mm3 (150-450); RBC Distribution Width CV 12.1 % (11.6-14.6); RBC Distribution Width SD 41.7 fl (35.1-43.9); Red Blood Count 5.33 M/mm3 (4.6-6.2); White Blood Count 8.8 K/mm3 (4.4-11.0)
[2021-07-06 14:24] VITALS: BP 121/98; PULSE 90; RESP 10; TEMP 37.1; O2SAT 99
[2021-07-06 14:41] LABS: ALB/GLOB Ratio 0.9 RATIO (0.9-2.4); AST(SGOT) 15 U/L (15-37); Alanine Aminotransfer ALT/SGPT 26 U/L (16-61); Albumin, Serum 3.3 g/dL (3.2-5.0); Alkaline Phosphatase 54 U/L (45-117); Anion Gap 3 (5-15); BUN 11 mg/dL (7-18); BUN/Creat Ratio 9.7 RATIO (10-20); Calcium,Total 8.7 mg/dL (8.5-10.1); Chloride 106 mmol/L (98-107); Creatinine, Serum 1.13 mg/dL (0.70-1.30); EST Glomerular Filtration Rate 73 mL/min (>60); Est Glom Filt Rate - Afr Amer 89 mL/min (>60); Estimated Creatinine Clearance 82.88 ml/min; Globulin 3.8 g/dL (2.2-4.2); Glucose 108 mg/dL (74-106); Potassium 4.5 mmol/L (3.5-5.1); Protein, Total 7.1 g/dL (6.4-8.2); Sodium Level 138 mmol/L (136-145); Troponin-I HS 7 pg/mL (3.0-78.0)
[2021-07-06 17:01] VITALS: BP 129/85; PULSE 94; RESP 16; O2SAT 99
[2021-07-06] MEDS: Metoprolol Tartrate 25 MG Tablet PO (17:35)
== END 2021-07-06 17:36 | disposition home or self-care (01) ==
PROVIDERS: Emergency Provider Emergency Medicine
DX: I48.0 Paroxysmal atrial fibrillation (principal); F17.210 Nicotine dependence, cigarettes, uncomplicated
CPT/HCPCS: 71045; 80053; 84484; 85025; 93005; 99284; A4216

== ENCOUNTER 2023-02-25 15:27 | Emergency (ER) | payer OTHER, SELFPAY ==
[2023-02-25 15:28] VITALS: BP 118/93; PULSE 82; RESP 18; TEMP 35.8; O2SAT 99; BMI 24.1
--- NOTE | 2023-02-25 15:39 | EKG12_ITS ---
Test Reason : Blood Pressure : / mmHG Vent. Rate : 145 BPM Atrial Rate : 000 BPM P-R Int : 000 ms QRS Dur : 072 ms QT Int : 290 ms P-R-T Axes : 000 028 055 degrees QTc Int : 450 ms Atrial fibrillation with rapid ventricular response Abnormal ECG Confirmed by ADAM DUNHAM MD ([id number]), continuity editor KIMBERLY JOYCE ([id number]) on 02/27/2023 8:12:53 AM Referred By: JERRY Confirmed By:ADAM DUNHAM MD
[2023-02-25 15:43] VITALS: BP 143/116; PULSE 155; RESP 20; O2SAT 97
--- NOTE | 2023-02-25 15:47 | EX.ED.DYSGE1 ---
HPI <BETTIE Beckford - Last Filed: 02/25/23 17:45> History of Present Illness Chief Complaint: Palpitations Narrative Narrative: Patient is a 52-year-old male with history of paroxysmal atrial fibrillation who has had A-fib for the last 3 years. He states that he has been going back and forth between using metoprolol as well as blood thinner. Patient states that for the last year he has been on no blood pressure medication or blood thinners. Patient states it has not been a problem for him, he states that he enjoys walking, as well as hiking, and the metoprolol is making him feel lightheaded. Patient states he woke up this morning thinking he might be in A-fib however he was not sure if it was real or not, he then went back to bed. He had a bed at approximately 3 PM, felt his heart rate increased, told his that he has A-fib again and is now in the emergency department. He does still smoke 1 pack/day, he does drink 3-4 beers daily. He denies any chest pain or shortness of breath. PFSH <BETTIE Beckford - Last Filed: 02/25/23 17:45> [facility] Medical History (Updated 02/25/23 @ 17:31 by BETTIE Beckford) DAMION (acute kidney injury) Alcohol dependence Alcoholism in remission Atrial fibrillation with RVR (11/2018) Elevated TSH Nicotine dependence Paroxysmal atrial fibrillation Home Medications apixaban 5 mg (74 tabs) tablets in a dose pack (Eliquis DVT-PE Treat 30D Start) 5 mg PO BID #74 tabs 02/25/23 [Rx Last Taken Unknown] diltiazem HCl 120 mg capsule,extended release 24 hr (Cardizem CD) 120 mg PO DAILY #30 caps 02/25/23 [Rx Last Taken Unknown] Allergy/AdvReac Type Severity Reaction Status Date / Time metoprolol AdvReac LIGHTHEADED Verified 02/25/23 15:30 Family History Grandfather Heart problem Surgical History History of cardioversion (12/20/18) History of tonsillectomy Social History Smoking Status: Current every day smoker tobacco type: cigarettes alcohol intake: former details: 3 weeks ago caffeine: No ROS <BETTIE Beckford - Last Filed: 02/25/23 17:45> ROS ED ROS Narrative Constitutional: Negative for fever, chills, weight loss, weakness Eyes: Negative for vision loss, vision change, double vision ENT: Negative for any sore throat, ear pain, congestion Cardiovascular: Negative for any chest pain, tightness. Positive for palpitations Respiratory: Negative for any cough, sputum production, hemoptysis, dyspnea, dyspnea on exertion, orthopnea Gastrointestinal: Negative for any abdominal pain, nausea, vomiting, diarrhea, constipation, blood in stool, blood in vomit : Negative for any urinary frequency, dysuria, retention, blood in urine Muscle skeletal: Negative for any muscle joint pain, stiffness, myalgias, arthralgias, neck pain, back pain Neurological: Negative for any headache, syncope, numbness or tingling, dizziness Skin: Negative for any rashes, lumps, itching, abrasions, lacerations Psychiatric: Negative for any depression, anxiety, stress, suicidal ideation, homicidal ideation Hematologic: Negative for any easy bruising, excessive bruising, easy bleeding Allergies: Negative for any eczema, hives, rash EXAM <BETTIE Beckford - Last Filed: 02/25/23 17:45> Physical Exam Narrative Exam Narrative: Vital signs reviewed. On initial arrival, patient's heart rate was 155, it appeared irregular. Patient is in no obvious distress. HEET: Head normocephalic atraumatic, TMs clear bilaterally. Posterior pharynx is clear, moist mucous membranes. Nares clear bilaterally. Neck: Supple with no lymphadenopathy or tenderness. No signs of meningismus, negative jolt sign. Cardiac: Tachycardic and irregular, no murmurs gallops or rubs, equal peripheral pulses bilaterally. Respiratory: Lungs clear to auscultation bilaterally. No chest tenderness. Abdomen: Soft, nontender, nondistended. No abdominal bruit or pulsatile masses. No hepatosplenomegaly Extremities: No peripheral edema, no signs of gross trauma or deformity. Active full range of motion of all extremities. Neuro: Cranial nerves II through XII intact, no focal neurological deficits. Skin: Clean dry and intact with no rash, purpura, petechiae, vesicles or pustules. Backs/flank: No CVA tenderness, no midline spinal tenderness, no deformity. Psych: Normal mood and affect. No SI, HI or acute psychosis. Const Vital Signs: 02/25/23 15:28 02/25/23 15:43 02/25/23 15:44 Temperature 96.4 F L Temperature Source Temporal Pulse Rate 82 155 H Respiratory Rate 18 20 H Respiratory Effort Respiratory Pattern Blood Pressure 118/93 H 143/116 H Blood Pressure Mean 101 125 Pulse Ox 99 97 Oxygen Delivery Method Room Air Room Air 02/25/23 15:46 02/25/23 16:13 02/25/23 17:00 Temperature Temperature Source Pulse Rate 90 90 Respiratory Rate 16 14 Respiratory Effort Normal Non-Labored Respiratory Pattern Normal Blood Pressure 115/94 H 108/93 H Blood Pressure Mean 101 98 Pulse Ox 98 99 Oxygen Delivery Method Room Air Room Air Positive well nourished and well developed General Appearance ED: well developed <Dr. Lamar Leger MD - Last Filed: 02/25/23 17:38> Physical Exam Const Vital Signs: 02/25/23 15:28 02/25/23 15:43 02/25/23 15:44 Temperature 96.4 F L Temperature Source Temporal Pulse Rate 82 155 H Respiratory Rate 18 20 H Respiratory Effort Respiratory Pattern Blood Pressure 118/93 H 143/116 H Blood Pressure Mean 101 125 Pulse Ox 99 97 Oxygen Delivery Method Room Air Room Air 02/25/23 15:46 02/25/23 16:13 02/25/23 17:00 Temperature Temperature Source Pulse Rate 90 90 Respiratory Rate 16 14 Respiratory Effort Normal Non-Labored Respiratory Pattern Normal Blood Pressure 115/94 H 108/93 H Blood Pressure Mean 101 98 Pulse Ox 98 99 Oxygen Delivery Method Room Air Room Air MDM <BETTIE Beckford - Last Filed: 02/25/23 17:45> [facility] Narrative Medical decision making narrative: Patient arrives in no distress, patient's vital signs show atrial fibrillation RVR, blood pressure oxygen is unremarkable. Patient appears well. Patient presents emerged department for paroxysmal atrial fibrillation, he has been diagnosed with A-fib for the last 3 and half years, however for the last year he has not taken any metoprolol or blood thinners. Patient denies any chest pain, shortness of breath, leg pain. Patient did receive a full cardiac work-up. Patient's chest x-ray was unremarkable, patient's laboratory values showed normal CBC, patient's PT/INR is within normal limits, chemistries were unremarkable. Patient's TSH is currently pending. For the atrial fibrillation, patient was given IV fluids, 15 mg of IV Cardizem. After initial Cardizem, patient heart rate went to the 80s. Patient's troponin was negative. Patient was observed, patient heart rate remained stable in A-fib however under 100. Patient will be given a prescription for Cardizem extended release 120 mg daily, will also receive starter dose of Eliquis for 1 month. I spoke with the patient at length regarding this, he is aware that he needs to go see his strap folding machine operator Dr. Pina who is established. He also follow-up with his PCP. I spoke with the patient, the patient's , they verbally understand. They had no further questions. They are instructed to return for any worsening symptoms. Lab Data Labs: Laboratory Results - last 24 hr 02/25/23 02/25/23 02/25/23 15:40 15:40 15:40 WBC 9.5 RBC 5.70 Hgb 17.4 H Hct 51.7 MCV 90.7 MCH 30.5 MCHC 33.7 RDW Std Deviation 41.0 RDW Coeff of Benny 12.4 Plt Count 309 MPV 9.7 Immature Gran % (Auto) 0.500 Neut % (Auto) 60.2 Lymph % (Auto) 28.6 Sumter % (Auto) 6.9 Eos % (Auto) 2.9 Baso % (Auto) 0.9 Absolute Neuts (auto) 5.7 Absolute Lymphs (auto) 2.72 Nucleated RBC % 0 PT 11.9 INR 0.9 Sodium Cancelled Potassium Cancelled Chloride Cancelled Carbon Dioxide Cancelled Anion Gap Cancelled BUN Cancelled Creatinine Cancelled Estim Creat Clear Calc Cancelled Est GFR (MDRD) Af Amer Cancelled Est GFR (MDRD) Non-Af Cancelled BUN/Creatinine Ratio Cancelled Glucose Cancelled Calcium Cancelled Troponin I High Sens Cancelled B-Natriuretic Peptide TSH 02/25/23 02/25/23 02/25/23 15:40 16:23 16:23 WBC RBC Hgb Hct MCV MCH MCHC RDW Std Deviation RDW Coeff of Benny Plt Count MPV Immature Gran % (Auto) Neut % (Auto) Lymph % (Auto) Sumter % (Auto) Eos % (Auto) Baso % (Auto) Absolute Neuts (auto) Absolute Lymphs (auto) Nucleated RBC % PT INR Sodium 140 Potassium 4.5 Chloride 110 H Carbon Dioxide 24.0 Anion Gap 6 BUN 19 H Creatinine 1.01 Estim Creat Clear Calc 96.04 Est GFR (MDRD) Af Amer 100 Est GFR (MDRD) Non-Af 83 BUN/Creatinine Ratio 18.8 Glucose 116 H Calcium 8.7 Troponin I High Sens 7 B-Natriuretic Peptide 48.7 TSH Cancelled Radiography Diagnostic Testing: Clinical Impression(s) from Imaging Studies Chest X-Ray 02/25/23 15:55 IMPRESSION: No radiographic evidence of acute cardiopulmonary disease. Electronically Signed: Sung Roman MD at 16:20 EDT Reading Location ID and State: [address] [place] [address] Tel , Service support , EKG Atrial fibrillation with rapid ventricular response: Attestation: I personally reviewed and interpreted this EKG as follows: Interpretation: Atrial Fibrillation Comments: A-fib with RVR, rate 145 bpm, QRS duration 72 ms, no acute ST elevation, no acute infarct noted. <Dr. Lamar Leger MD - Last Filed: 02/25/23 17:38> [facility] Lab Data Labs: Laboratory Results - last 24 hr 02/25/23 02/25/23 02/25/23 15:40 15:40 15:40 WBC 9.5 RBC 5.70 Hgb 17.4 H Hct 51.7 MCV 90.7 MCH 30.5 MCHC 33.7 RDW Std Deviation 41.0 RDW Coeff of Benny 12.4 Plt Count 309 MPV 9.7 Immature Gran % (Auto) 0.500 Neut % (Auto) 60.2 Lymph % (Auto) 28.6 Sumter % (Auto) 6.9 Eos % (Auto) 2.9 Baso % (Auto) 0.9 Absolute Neuts (auto) 5.7 Absolute Lymphs (auto) 2.72 Nucleated RBC % 0 PT 11.9 INR 0.9 Sodium Cancelled Potassium Cancelled Chloride Cancelled Carbon Dioxide Cancelled Anion Gap Cancelled BUN Cancelled Creatinine Cancelled Estim Creat Clear Calc Cancelled Est GFR (MDRD) Af Amer Cancelled Est GFR (MDRD) Non-Af Cancelled BUN/Creatinine Ratio Cancelled Glucose Cancelled Calcium Cancelled Troponin I High Sens Cancelled B-Natriuretic Peptide TSH 02/25/23 02/25/23 02/25/23 15:40 16:23 16:23 WBC RBC Hgb Hct MCV MCH MCHC RDW Std Deviation RDW Coeff of Benny Plt Count MPV Immature Gran % (Auto) Neut % (Auto) Lymph % (Auto) Sumter % (Auto) Eos % (Auto) Baso % (Auto) Absolute Neuts (auto) Absolute Lymphs (auto) Nucleated RBC % PT INR Sodium 140 Potassium 4.5 Chloride 110 H Carbon Dioxide 24.0 Anion Gap 6 BUN 19 H Creatinine 1.01 Estim Creat Clear Calc 96.04 Est GFR (MDRD) Af Amer 100 Est GFR (MDRD) Non-Af 83 BUN/Creatinine Ratio 18.8 Glucose 116 H Calcium 8.7 Troponin I High Sens 7 B-Natriuretic Peptide 48.7 TSH Cancelled Radiography Diagnostic Testing: Clinical Impression(s) from Imaging Studies Chest X-Ray 02/25/23 15:55 IMPRESSION: No radiographic evidence of acute cardiopulmonary disease. Electronically Signed: Sung Roman MD at 16:20 EDT Reading Location ID and State: [address] [place] [address] Tel , Service support , Treatment and Re-Evaluation :: Patient seen and evaluated with RADHIKA. I personally interviewed and examined the patient. I was involved in all aspects of patient's orders, interpretation of results, and treatment. Patient presents with palpitations and believes he is in atrial fibrillation. He has a history of A-fib but has been back in sinus for quite some time. He stopped his blood thinners and metoprolol a year ago. He works second shift and was sleeping this morning. He states he woke briefly and felt like he may have some fluttering in his chest but went back to sleep. When he got up this afternoon he felt his heart to be irregular and fast. He denies chest pain. He does report some dyspnea with exertion. Patient sitting upright in bed no acute distress. Head and neck examination unremarkable. Heart is tachycardic and irregular. Lung sounds are clear. Abdomen is soft and nontender. Neuro exam is normal. EKG confirms atrial fibrillation RVR with no evidence of acute ischemia. CBC and chemistry studies are largely unremarkable other than a hemoglobin of 17. Troponin is negative. TSH is pending. Chest x-ray per my interpretation reveals chronic changes with no acute abnormality. Radiology interpretation is reviewed and agrees. After IV Cardizem patient's heart rate is in the 80s and 90s. He will be placed on Cardizem orally as he reports feeling lightheaded when he was on metoprolol in the past. He will also be started on Eliquis. He has seen Dr. Pina in the past and will be encouraged to follow-up in the office within the next couple weeks. Return instructions provided. Discharge Plan Triage Chief Complaint: Palpitations Other Complaint: Shortness of Breath ED Midlevel Provider: Evangelist Infante ED Provider: Lamar Leger Dx/Rx/DC Orders Clinical Impression: Paroxysmal atrial fibrillation, History of medication noncompliance Instructions: AFib Preventing Stroke, AFib, ED AFIB Prescriptions: New Eliquis DVT-PE Treat 30D Start 5 mg (74 tabs) tablets,dose pack 5 mg PO BID Qty: 74 0RF Rx Instructions: He will take two 5 mg tablets twice a day for 7 days. After 7 days he will take 5 mg twice daily diltiazem HCl [Cardizem CD] 120 mg capsule,extended release 24hr 120 mg PO DAILY Qty: 30 1RF Primary Care Provider: Care Physician,No Primary Referrals: Ayaz Pina MD [Med Staff - Active Staff] - Care Physician,No Primary [Primary Care Provider] - Activity Restrictions/Additional Instructions: You will be taking Cardizem 120 mg extended release daily you need to get back on your Eliquis, this will help prevent you from stroke. You need to follow-up with your strap folding machine operator as well as your primary care physician. Disposition Disposition: Home, Self Care
[2023-02-25] MEDS: 0.9% Normal Saline 1,000 ML 1000 ML IV (15:50)
[2023-02-25] MEDS: dilTIAZem 25 MG/5 ML Vial 15 MG IV BOLUS (15:50)
[2023-02-25 15:52] LABS: Absolute Lymphocyte Count 2.72 X10^3/uL (0.83-4.51); Absolute Neutrophil Count 5.7 X10^3/uL (2.0-7.7); Basophil# 0.09 X10^3/uL; Basophil% 0.9 % (0-1); Eosinophil# 0.28 X10^3/uL; Eosinophils% 2.9 % (0-5); Hematocrit 51.7 % (40-54); Hemoglobin 17.4 g/dL (13.0-16.5); Lymphocyte # 2.72 X10^3/ul (0.83-4.51); Lymphocyte % 28.6 % (19-41); Mean Corp Hgb Conc 33.7 g/dL (32-36); Mean Corpuscular Hgb 30.5 pg (27.0-32.0); Mean Corpuscular Volume 90.7 fL (80-94); Mean Platelet Vol. 9.7 fl (6.2-12.0); Monocyte# 0.66 X10^3/uL; Monocyte% 6.9 % (0-10); NRBC Flagged by Analyzer 0 % (0-5); Neutrophil % 60.2 % (47-70); Platelet Count 309 K/mm3 (150-450); RBC Distribution Width CV 12.4 % (11.6-14.6); White Blood Count 9.5 K/mm3 (4.4-11.0)
--- NOTE | 2023-02-25 15:55 | RAD_ITS ---
INDICATION: chest pain EXAMINATION/TECHNIQUE: X-RAY - portable upright AP chest x-ray COMPARISON: 07/06/2021 FINDINGS: LINES/DEVICES: None. LUNGS: No consolidation, edema or effusion. No pneumothorax. MEDIASTINUM AND CARDIOVASCULAR STRUCTURES: Cardiac silhouette not enlarged. Central airways and mediastinal contour are unremarkable. BONES AND SOFT TISSUES: Unremarkable. RAD/Chest 1 View (Portable) IMPRESSION: No radiographic evidence of acute cardiopulmonary disease. Electronically Signed: Sung Roman MD at 16:20 EDT ,
[2023-02-25 16:03] LABS: International Normalized Ratio 0.9; Prothrombin Time (Protime)PT. 11.9 SECONDS (11.7-14.9)
[2023-02-25 16:12] LABS: BNP,B-Type NATRIURETIC PEPTIDE 48.7 pg/mL (0-100)
[2023-02-25 16:13] VITALS: BP 115/94; PULSE 90; RESP 16; O2SAT 98
[2023-02-25 16:56] LABS: Anion Gap 6 (5-15); BUN 19 mg/dL (7-18); BUN/Creat Ratio 18.8 RATIO (10-20); Calcium,Total 8.7 mg/dL (8.5-10.1); Chloride 110 mmol/L (98-107); Creatinine, Serum 1.01 mg/dL (0.70-1.30); EST Glomerular Filtration Rate 83 mL/min (>60); Est Glom Filt Rate - Afr Amer 100 mL/min (>60); Estimated Creatinine Clearance 96.04 ml/min; Glucose 116 mg/dL (74-106); Potassium 4.5 mmol/L (3.5-5.1); Sodium Level 140 mmol/L (136-145); Troponin-I HS (w/2H Reflex) 7 pg/mL (3.0-78.0)
[2023-02-25 17:00] VITALS: BP 108/93; PULSE 90; RESP 14; O2SAT 99
[2023-02-25 17:40] VITALS: BP 146/80; PULSE 88; RESP 15; O2SAT 97
[2023-02-25 17:48] LABS: Thyroid Stim Hormone (TSH) 2.09 uIU/mL (0.358-3.74)
[2023-02-25 18:35] LABS: Reflex Troponin-HS? (from REC) Y
--- NOTE | 2023-02-27 14:45 | CM.ED ---
Social Work SW called patient in order to discuss medication assistance for prescriptions if needed. Voicemail picked up but mailbox was full. June Eli REMOTE SENSING SURVEYOR, CLINIC BUSINESS MANAGER
--- NOTE | 2023-03-02 19:53 | CM.ED ---
Social Work Note SW called patient in order to discuss medication assistance for prescriptions if needed, no answer and unable to leave VM due to VM box being full. Renee Dietrich UI LEAD DEVELOPER, PAUL
== END 2023-02-25 17:46 | disposition home or self-care (01) ==
PROVIDERS: Nurse Practitioner; Emergency Provider Emergency Medicine; Visit Provider Emergency Medicine
DX: I48.0 Paroxysmal atrial fibrillation (principal); F17.210 Nicotine dependence, cigarettes, uncomplicated
CPT/HCPCS: 71045; 80048; 83880; 84443; 84484; 85025; 85610; 93005; 96361; 96374; 99283; J7030; A4216

== ENCOUNTER 2025-01-24 16:09 | Emergency (ER) | payer SELFPAY ==
[2025-01-24 16:10] VITALS: BP 137/91; PULSE 113; RESP 22; TEMP 36.6; O2SAT 95; BMI 27.5
--- NOTE | 2025-01-24 16:26 | RAD_ITS ---
PROCEDURE: CHEST PA AND LATERAL 01/24/2025 REASON FOR EXAM: Shortness of breath TECHNIQUE: Frontal and lateral views of the chest. COMPARISON: None. FINDINGS: Hardware: None. Heart: The heart size is normal. Mediastinum: The mediastinal contour is unremarkable. Lungs: The lungs are clear. Bones: The bones are unremarkable. RAD/Chest PA and Lateral IMPRESSION: NEGATIVE CHEST Reading [facility]
--- NOTE | 2025-01-24 16:27 | EKG12_ITS ---
Test Reason : SOB Blood Pressure : */* mmHG Vent. Rate : 101 BPM Atrial Rate : 101 BPM P-R Int : 152 ms QRS Dur : 80 ms QT Int : 336 ms P-R-T Axes : 64 18 60 degrees QTcB Int : 435 ms Sinus tachycardia Otherwise normal ECG Confirmed by SARAH CASANOVA, ELVER ([id number]), editorial project manager KIMBERLY JOYCE ([id number]) on 01/26/2025 6:01:07 AM Referred By: Kel Stewart Confirmed By: ELVER SMITH MD
[2025-01-24 16:33] VITALS: O2SAT 98
--- NOTE | 2025-01-24 16:38 | EDS_ITS ---
HPI <SERGIO Zavala - Last Filed: 01/24/25 18:40> History of Present Illness Chief Complaint: Shortness of Breath Narrative Narrative: Patient presenting today due to shortness of breath that started this morning when he woke up. He reports that he has felt wheezy since this morning which is unusual for him. He denies any history of COPD or asthma but reports that he does smoke 1.5 PPD. He has been sick over the last several days and reports a nonproductive cough and nasal congestion. He has a remote history of A-fib on Eliquis but reports that he was told he no longer needed the anticoagulant and no longer takes it. He denies chest pain, abdominal pain, fevers, chills, nausea, and vomiting. PE Risk Factors: Negative for Cancer, Prior DVT or PE, Recent immobilization, Recent surgery or Recent travel [facility] <SERGIO Zavala - Last Filed: 01/24/25 18:40> [facility] Medical History (Updated 01/24/25 @ 17:53 by SERGIO Zavala) Alcoholism in remission Nicotine dependence Paroxysmal atrial fibrillation DAMION (acute kidney injury) Alcohol dependence Elevated TSH Atrial fibrillation with RVR (11/2018) Home Medications ?Medication ?Instructions ?Recorded ?Last Taken ?Type apixaban 5 mg tablet (Eliquis) 5 mg PO BID #60 tabs Unknown Rx diltiazem HCl 120 mg 120 mg PO DAILY #30 caps 01/12 Unknown Rx capsule,extended release 24 hr (Cardizem CD) albuterol sulfate 90 mcg/actuation 1 - 2 puff inhalati on Q4H PRN PRN 01/24/25 Unknown Rx aerosol inhaler (Ventolin HFA) Wheezing #1 inh azithromycin 250 mg tablet 250 mg PO DAILY #4 TABLETS 01/24/25 Unknown Rx prednisone 20 mg tablet 40 mg (2 x 20 mg) PO DAILY 5 days 01/24/25 Unknown Rx #10 tabs Allergy/AdvReac Type Severity Reaction Status Date / Time No Known Allergies Allergy Verified 01/24/25 16:13 Family History Grandfather Heart problem Surgical History History of cardioversion (12/20/18) History of tonsillectomy Social History household members: none housing: apartment Smoking Status: Current every day smoker tobacco type: cigarettes alcohol intake: former details: 3 weeks ago caffeine: No ROS <SERGIO Zavala - Last Filed: 01/24/25 18:40> ROS ED Constitutional Constitutional ED: Denies chills or fever(s) Cardiovascular Cardiovascular: Denies chest pain or palpitations Respiratory/Chest Respiratory/Chest: Reports cough, dyspnea and wheezing Gastrointestinal Gastrointestinal: Denies abdominal pain, nausea or vomiting Musculoskeletal Musculoskeletal: Denies arthralgias or myalgias Integumentary Denies rash Neurologic Neurologic: Denies weakness EXAM <SERGIO Zavala - Last Filed: 01/24/25 18:40> Physical Exam Const Vital Signs: 01/24/25 16:10 01/24/25 16:33 01/24/25 16:33 Temperature 97.8 F Temperature Source Temporal Pulse Rate 113 H Respiratory Rate 22 H Respiratory Effort Short of Breath Labored Respiratory Depth Normal Respiratory Pattern Tachypnea Blood Pressure 137/91 H Blood Pressure Mean 106 Pulse Ox 95 98 Oxygen Delivery Method Room Air Room Air Room Air 01/24/25 16:41 01/24/25 17:12 01/24/25 18:00 Temperature 97.7 F L Temperature Source Oral Pulse Rate 107 H 93 102 H Respiratory Rate 15 23 H 15 Respiratory Effort Respiratory Depth Respiratory Pattern Normal Blood Pressure 126/80 H 120/95 H Blood Pressure Mean 95 103 Pulse Ox 90 94 Oxygen Delivery Method Room Air Room Air 01/24/25 18:06 Temperature 97.7 F L Temperature Source Pulse Rate 102 H Respiratory Rate 15 Respiratory Effort Respiratory Depth Respiratory Pattern Blood Pressure 120/95 H Blood Pressure Mean 103 Pulse Ox 94 Oxygen Delivery Method Positive well nourished, well developed and no apparent distress General Appearance ED: well developed HEENT Reports normocephalic and head/scalp atraumatic Mouth ED: Yes moist mucous membranes normal Eyes PERRL and EOMs intact bilaterally Neck full ROM and supple Chest Wall inspection of chest normal Resp normal respiratory effort Resp Narrative: Expiratory wheezes and coarse breath sounds to the bilateral lung birch Cardio regular rhythm Rate: tachycardic GI soft to palpation, non-tender, non-distended and no masses Back/Spine normal ROM and normal to inspection Extremity normal to inspection and full ROM Neuro oriented x3, CN's II-XII intact bilaterally, moves all extremities, no focal motor deficits and no sensory deficits noted Sensorium / Orientation: awake and alert Psych mental status grossly normal and thought process normal Skin no rashes or lesions noted and no wounds <Dr. Kel Stewart DO - Last Filed: 01/24/25 19:32> Physical Exam Const Vital Signs: 01/24/25 16:10 01/24/25 16:33 01/24/25 16:33 Temperature 97.8 F Temperature Source Temporal Pulse Rate 113 H Respiratory Rate 22 H Respiratory Effort Short of Breath Labored Respiratory Depth Normal Respiratory Pattern Tachypnea Blood Pressure 137/91 H Blood Pressure Mean 106 Pulse Ox 95 98 Oxygen Delivery Method Room Air Room Air Room Air 01/24/25 16:41 01/24/25 17:12 01/24/25 18:00 Temperature 97.7 F L Temperature Source Oral Pulse Rate 107 H 93 102 H Respiratory Rate 15 23 H 15 Respiratory Effort Respiratory Depth Respiratory Pattern Normal Blood Pressure 126/80 H 120/95 H Blood Pressure Mean 95 103 Pulse Ox 90 94 Oxygen Delivery Method Room Air Room Air 01/24/25 18:06 Temperature 97.7 F L Temperature Source Pulse Rate 102 H Respiratory Rate 15 Respiratory Effort Respiratory Depth Respiratory Pattern Blood Pressure 120/95 H Blood Pressure Mean 103 Pulse Ox 94 Oxygen Delivery Method [facility] <SERGIO Zavala - Last Filed: 01/24/25 18:40> [facility] Narrative Medical decision making narrative: Patient presenting today with shortness of breath that started this morning when he woke up. He has had wheezing today which he reports is not usual for him. He does smoke pretty heavily but denies any known history of COPD. He has a previous history of paroxysmal A-fib but does not think he has been in A-fib for a while, he is no longer taking a blood thinner. He has had URI symptoms over the last several days. Workup obtained, his CBC, BMP, D-dimer, and troponin are unremarkable. Chest x-ray negative for any acute cardiopulmonary abnormality. Given his wheezing and tobacco use history I suspect he could have some underlying COPD. He was given IV Solu-Medrol, albuterol, and DuoNeb breathing treatments. He reports significant improvement of his symptoms on reexamination. He is not hypoxic here. I will start him on a course of azithromycin and prednisone as well as an albuterol inhaler for home. PCP referral was given and patient discharged home in stable condition. Smoking cessation discussed with him. Lab Data Attestation: I reviewed the patient's lab results. Labs: Laboratory Results - last 24 hr 01/24/25 16:22 WBC 9.2 RBC 5.04 Hgb 15.4 Hct 45.8 MCV 90.9 MCH 30.6 MCHC 33.6 RDW Std Deviation 41.0 RDW Coeff of Benny 12.5 Plt Count 222 MPV 9.8 Immature Gran % (Auto) 0.500 Neut % (Auto) 67.4 Lymph % (Auto) 17.9 L [place] % (Auto) 10.0 Eos % (Auto) 3.3 Baso % (Auto) 0.9 Absolute Neuts (auto) 6.2 Absolute Lymphs (auto) 1.64 Nucleated RBC % 0 D-Dimer Quant (PE/DVT) 0.27 Sodium 134 Potassium 4.6 Chloride 98 Carbon Dioxide 22.5 Anion Gap 13 BUN 17 Creatinine 1.19 Estim Creat Clear Calc 79.70 Est GFR (MDRD) Non-Af 73 BUN/Creatinine Ratio 14.5 Glucose 111 H Calcium 9.1 Troponin T High Sens 10 Radiography X-Ray: Read by ED Physician Diagnostic Testing: Clinical Impression(s) from Imaging Studies Chest X-Ray 01/24/25 16:26 IMPRESSION: NEGATIVE CHEST Reading Location: [facility] EKG Initial EKG: Comments: 101 bpm, sinus tachycardia, no ST elevation <Dr. Kel Stewart, DO - Last Filed: 01/24/25 19:32> [facility] MDM Narrative Medical decision making narrative: Patient presenting today with shortness of breath that started this morning when he woke up. He has had wheezing today which he reports is not usual for him. He does smoke pretty heavily but denies any known history of COPD. He has a previous history of paroxysmal A-fib but does not think he has been in A-fib for a while, he is no longer taking a blood thinner. He has had URI symptoms over the last several days. Workup obtained, his CBC, BMP, D-dimer, and troponin are unremarkable. Chest x-ray negative for any acute cardiopulmonary abnormality. Given his wheezing and tobacco use history I suspect he could have some underlying COPD. He was given IV Solu-Medrol, albuterol, and DuoNeb breathing treatments. He reports significant improvement of his symptoms on reexamination. He is not hypoxic here. I will start him on a course of azithromycin and prednisone as well as an albuterol inhaler for home. PCP referral was given and patient discharged home in stable condition. Smoking cessation discussed with him. Supervisory Physician Note Patient was seen and examined with the Advanced Practice Provider. Nursing notes and vital signs have been reviewed. Pertinent old records have been reviewed. I agree with the essential elements of the RADHIKA's history, physical exam, assessment, and plan. The differential diagnosis and management options were discussed with the RADHIKA. I participated in determining and agree with the management, procedures, final impression and disposition as documented. See changes noted by me. Please see addendum or separate note for any additional details. EKG: Interpreted by me/EM physician: EKG shows sinus tachycardia without any acute ischemic changes. Heart rate 101 Diagnostic: Interpreted by me/EM physician: Chest x-ray without pneumonia, effusion, cardiomegaly, pneumothorax Patient presented for evaluation of wheezing with URI symptoms. Patient had wheezing on physical exam. Wheezing improved with treatment. Workup relatively unremarkable. Patient stable to discharge home for COPD exacerbation secondary to likely viral illness. Impression: 1. COPD exacerbation 2. Viral illness Lab Data Labs: Laboratory Results - last 24 hr 01/24/25 16:22 WBC 9.2 RBC 5.04 Hgb 15.4 Hct 45.8 MCV 90.9 MCH 30.6 MCHC 33.6 RDW Std Deviation 41.0 RDW Coeff of Benny 12.5 Plt Count 222 MPV 9.8 Immature Gran % (Auto) 0.500 Neut % (Auto) 67.4 Lymph % (Auto) 17.9 L [place] % (Auto) 10.0 Eos % (Auto) 3.3 Baso % (Auto) 0.9 Absolute Neuts (auto) 6.2 Absolute Lymphs (auto) 1.64 Nucleated RBC % 0 D-Dimer Quant (PE/DVT) 0.27 Sodium 134 Potassium 4.6 Chloride 98 Carbon Dioxide 22.5 Anion Gap 13 BUN 17 Creatinine 1.19 Estim Creat Clear Calc 79.70 Est GFR (MDRD) Non-Af 73 BUN/Creatinine Ratio 14.5 Glucose 111 H Calcium 9.1 Troponin T High Sens 10 Radiography Diagnostic Testing: Clinical Impression(s) from Imaging Studies Chest X-Ray 01/24/25 16:26 IMPRESSION: NEGATIVE CHEST Reading Location: [facility] Discharge Plan Triage Chief Complaint: Shortness of Breath ED Midlevel Provider: Jasmyn Gardiner ED Provider: Kel Stewart Dx/Rx/DC Orders Clinical Impression: URI (upper respiratory infection), Nicotine dependence, Acute dyspnea, Wheezing Instructions: ED COPD Flare, ED URI, Viral W/ Wheezing (Adult) Prescriptions: New prednisone 20 mg tablet 40 mg PO DAILY 5 Days Qty: 10 0RF azithromycin 250 mg tablet 250 mg PO DAILY Qty: 4 0RF albuterol sulfate [Ventolin HFA] 90 mcg/actuation HFA aerosol inhaler 1 - 2 puff inhalation Q4H PRN PRN (Reason: Wheezing) Qty: 1 0RF No Action Eliquis 5 mg tablet 5 mg PO BID Qty: 60 11RF diltiazem HCl [Cardizem CD] 120 mg capsule,extended release 24hr 120 mg PO DAILY Qty: 30 11RF Primary Care Provider: Care Physician,No Primary Referrals: Pat Castillo DO [Med Staff - Data Center Architect] - 5-7 Days Care Physician,No Primary [Primary Care Provider] - Activity Restrictions/Additional Instructions: Follow-up with your PCP in 5-7 days.return for any worsening symptoms. We have suspicion that you may have COPD, your PCP can test for this. If you do not have a PCP I have referred you to 1. Print Language: Thai Disposition Disposition: Home, Self Care Discharge Date/Time: 01/24/25 18:07
[2025-01-24 16:41] VITALS: PULSE 107; RESP 15
[2025-01-24 16:41] LABS: Absolute Lymphocyte Count 1.64 X10^3/uL (0.83-4.51); Absolute Neutrophil Count 6.2 X10^3/uL (2.0-7.7); Basophil# 0.08 X10^3/uL; Basophil% 0.9 % (0-1); Eosinophils% 3.3 % (0-5); Hematocrit 45.8 % (40-54); Hemoglobin 15.4 g/dL (13.0-16.5); Lymphocyte # 1.64 X10^3/ul (0.83-4.51); Lymphocyte % 17.9 % (19-41); Mean Corp Hgb Conc 33.6 g/dL (32-36); Mean Corpuscular Hgb 30.6 pg (27.0-32.0); Mean Corpuscular Volume 90.9 fL (80-94); Mean Platelet Vol. 9.8 fl (6.2-12.0); Monocyte# 0.92 X10^3/uL; NRBC Flagged by Analyzer 0 % (0-5); Neutrophil # 6.17 X10^3/uL (2.7-7.7); Neutrophil % 67.4 % (47-70); Platelet Count 222 K/mm3 (150-450); RBC Distribution Width CV 12.5 % (11.6-14.6); Red Blood Count 5.04 M/mm3 (4.6-6.2); White Blood Count 9.2 K/mm3 (4.4-11.0)
[2025-01-24] MEDS: Albuterol 2.5 MG/3 ML VIAL.NEB. INHALATION ×3 (16:41→16:42)
[2025-01-24] MEDS: MethylPREDNISolone 125 MG/2 ML Vial IV (16:41)
[2025-01-24] MEDS: Ipratropium/Albuterol Sulfate 3 ML AMPUL.NEB INHALATION (16:42)
[2025-01-24 16:55] LABS: D-Dimer Quantitative (DVT/PE) 0.27 FEU/ug/m (0.27-0.49)
[2025-01-24 17:10] LABS: Anion Gap 13 (5-15); BUN 17 mg/dL (4-19); BUN/Creat Ratio 14.5 RATIO (10-20); Calcium,Total 9.1 mg/dL (7.6-11.0); Carbon Dioxide 22.5 mmol/L (21.0-32.0); Chloride 98 mmol/L (98-108); Creatinine, Serum 1.19 mg/dL (0.70-1.20); EST Glomerular Filtration Rate 73 (>60); Glucose 111 mg/dL (70-99); Potassium 4.6 mmol/L (3.3-5.1); Sodium Level 134 mmol/L (133-145)
[2025-01-24 17:12] VITALS: BP 126/80; PULSE 93; RESP 23; TEMP 36.5; O2SAT 90
[2025-01-24 17:13] LABS: Troponin T High Sensitivity 10 ng/L (<=22)
[2025-01-24 18:00] VITALS: BP 120/95; PULSE 102; RESP 15; O2SAT 94
[2025-01-24] MEDS: Azithromycin 250 MG Tablet 500 MG PO (18:03)
[2025-01-24 18:06] VITALS: BP 120/95; PULSE 102; RESP 15; TEMP 36.5; O2SAT 94
== END 2025-01-24 18:07 | disposition home or self-care (01) ==
PROVIDERS: Physician Assistant; Emergency Provider Surgery; Referring Provider Surgery; Visit Provider Surgery
DX: J06.9 Acute upper respiratory infection, unspecified (principal); F10.21 Alcohol dependence, in remission; R06.2 Wheezing; R06.00 Dyspnea, unspecified; F17.210 Nicotine dependence, cigarettes, uncomplicated
CPT/HCPCS: 71046; 80048; 84484; 85025; 85379; 87631; 93005; 94640; 96374; 99283; A4216